=== PATIENT | male | born 1965 | race Caucasian/White ===

== ENCOUNTER 2016-07-29 14:02 | Emergency (ER) | payer MEDICARE ==
[2016-07-29 14:06] VITALS: TEMP 98.7
--- NOTE | 2016-07-29 14:14 | ED ---
General Adult HPI - General Chief complaint: Wound/Laceration Stated complaint: Finger Lac Time Seen by Provider: 07/29/16 14:07 Source: patient, RN notes reviewed Mode of arrival: ambulatory Limitations: no limitations - History of Present Illness Initial comments: Is a 51-year-old male presents with a laceration to the left index finger. Patient states this just happened today as he was using a saw to cut wood. Patient is unsure if he is up-to-date on his tetanus shot. Patient denies any numbness/tingling or weakness to the left hand. Patient denies any recent fever , chills, shortness breath, chest pain, abdominal pain, nausea/vomiting/diarrhea , back pain, hematuria, headache, or visual changes, or any other complaints. - Related Data Home Medications Medication Instructions Recorded Confirmed Citalopram Hydrobromide 40 mg PO QAM 01/22/16 01/22/16 [Citalopram HBr] Hydrochlorothiazide 25 mg PO QAM 01/22/16 01/23/16 Lisinopril [Zestril] 20 mg PO QAM 01/22/16 01/22/16 Naproxen Sodium [Aleve] 220 - 440 mg PO Q4-6H PRN 01/22/16 01/22/16 Previous Rx's Medication Instructions Recorded Hydrocodone/Acetaminophen [[place] 1 - 2 each PO Q6HR PRN #30 tab 01/23/16 5-325] Cephalexin [Keflex] 500 mg PO Q12HR 7 Days 07/29/16 Allergies Allergy/AdvReac Type Severity Reaction Status Date / Time sulfamethoxazole Allergy Rash/Hives. Verified 07/29/16 14:06 [From Bactrim] ITCHING trimethoprim [From Bactrim] Allergy Rash/Hives. Verified 07/29/16 14:06 ITCHING Review of Systems ROS Statement: Those systems with pertinent positive or pertinent negative responses have been documented in the HPI. ROS Other: All systems not noted in ROS Statement are negative. Past Medical History Past Medical History: Hypertension History of Any Multi-Drug Resistant Organisms: None Reported Past Surgical History: Back Surgery, Hernia Repair, Orthopedic Surgery Additional Past Surgical History / Comment(s): CARPAL TUNNEL X2. RIGHT KNEE ARTHO X2. Past Anesthesia/Blood Transfusion Reactions: Motion Sickness, Postoperative Nausea & Vomiting (PONV) Past Psychological History: Anxiety Smoking Status: Current some day smoker Past Alcohol Use History: Occasional Additional Past Alcohol Use History / Comment(s): SMOKED FOR 5 YRS, QUIT 2013, PPD: 1/2 PACK. CURRENT: OCC CIGAR. Past Drug Use History: None Reported - Past Family History Mother Family Medical History: Diabetes Mellitus General Exam - General Exam Comments Initial Comments: General: The patient is awake and alert, in no distress, and does not appear acutely ill. Neck: The neck is supple, there is no tenderness or JVD. Cardiovascular: There is a regular rate and rhythm. No murmur, rub or gallop is appreciated. Respiratory: Lungs are clear to auscultation, respirations are non-labored, breath sounds are equal. No wheezes, stridor, rales, or rhonchi. Musculoskeletal: Tenderness to palpation of the left second digit distal to the DIP joint due to laceration. Full range of motion, strength 5/5 and Sensation intact. Radial pulses 2+ bilaterally. Capillary refill is normal at less than 2 seconds. Neurological: A&O x 3. CN II-XII intact, There are no obvious motor or sensory deficits. Coordination appears grossly intact. Speech is normal. Skin: There is an approximately 1.5-2 cm laceration to the palmar aspect of the left second digit distal to the DIP joint. Skin is warm and dry and no rashes or lesions are noted. Psychiatric: Normal mood and affect. Limitations: no limitations Course Vital Signs 07/29/16 07/29/16 14:03 15:51 Temperature 98.7 F 98.7 F Pulse Rate 71 68 Respiratory 18 17 Rate Blood Pressure 140/94 138/88 O2 Sat by Pulse 95 97 Oximetry Procedures - Procedures Initial comment: The skin was anesthetized with 1% lidocaine using digital block. The laceration was then cleansed and irrigated with normal saline. The wound was inspected, and there was no evidence of injury to deep structures. No foreign body was noted in the wound. A total of 12 skin sutures were placed utilizing 5-0 Ethilon. Laceration is approximately 1.5-2 cm. Patient tolerated procedure well. Medical Decision Making - Medical Decision Making This is a 51-year-old male presents laceration to left index finger. On physical exam there is an approximately 1.5-2 cm laceration to the palmar aspect of the left second digit distal to the DIP joint. Skin is warm and dry and no rashes or lesions are noted. Radial pulses are 2+ bilaterally. Capillary refill is normal at less than 2 seconds. Patient received a tetanus shot in the [facility] today. An x-ray of the left hand was done and reviewed showing:Comminuted tuft fracture is suspected of the second digit of the left hand, there may be associated foreign bodies in the soft tissues. No dislocation. There is associated soft tissue injury and deformity. Impression: Posttraumatic changes second digit distally. Report read by Dr. Terrell. I discussed with patient that this could be a foreign body in the wound but none was visualized while rinsing and cleaning the wound. The skin was anesthetized with 1% lidocaine using digital block. The laceration was then cleansed and irrigated with normal saline. The wound was inspected, and there was no evidence of injury to deep structures. No foreign body was noted in the wound. A total of 12 skin sutures were placed utilizing 5-0 Ethilon. Laceration is approximately 1.5-2 cm. Patient tolerated procedure well. Discussed the results with patient. Discussed suture removal in 8-10 days. Discussed return parameters and signs of infection. Discussed that patient should finish the entire course of antibiotics. Please use finger splint to keep index finger immobilized. Discussed rinsing and showering okay to avoid submerging wound in water. Patient was offered prescription for [place] but refused this stating Tylenol and Motrin will be fine for him. I discussed that patient should follow-up with orthopedics in one to 2 days or return to the [facility] for any worsening symptoms or for any further concerns. Patient and were receptive to this plan patient will be discharged home. I discussed this case with attending physician Dr. Mcfarland who agrees with plan as stated above. Disposition Clinical Impression: Laceration, Open fracture of distal phalangeal tuft Disposition: HOME SELF-CARE Condition: Good Instructions: Laceration (ED) Additional Instructions: Please have sutures removed in 8-10 days. Please finish entire course of antibiotics. Please use finger splint to keep index finger immobilized. Please use [id number] Tylenol and or Motrin as needed for any pain.Please use medication as discussed. Please follow-up with family doctor in the next 2 days of symptoms have not improved. Please return to emergency room if the symptoms increase or worsen or for any other concerns. Prescriptions: Cephalexin [Keflex] 500 mg PO Q12HR 7 Days Referrals: Sundar Goznalez DO [Primary Care Provider] - 1-2 days Jerzy Reis MD [STAFF PHYSICIAN] - 1-2 days Time of Disposition: 15:39
[2016-07-29] MEDS ORDERED: DIPH,PERTUS(ACELL)TETVAC-LF 0.5 ML VIAL IM ONE (14:18)
--- NOTE | 2016-07-29 15:13 | XR ---
Left hand HISTORY: Pain, trauma 3 views of the left hand Comminuted tuft fracture is suspected at the second digit of the left hand, there may be associated f oreign bodies within the soft tissues. No dislocation. There is associated soft tissue injury and def ormity. IMPRESSION: Posttraumatic changes second digit distally.
[2016-07-29 15:52] VITALS: BP 138/88; PULSE 68; RESP 17
== END 2016-07-29 15:51 | disposition home or self-care (01) ==
LOC: EC 14:02
DX: S62.631B Displaced fracture of distal phalanx of left index finger, initial encounter for open fracture (principal); W31.2XXA Contact with powered woodworking and forming machines, initial encounter; S61.211A Laceration without foreign body of left index finger without damage to nail, initial encounter; Z23 Encounter for immunization; Z79.899 Other long term (current) drug therapy; Z88.2 Allergy status to sulfonamides; Z88.8 Allergy status to other drugs, medicaments and biological substances; I10 Essential (primary) hypertension; F41.9 Anxiety disorder, unspecified; F17.200 Nicotine dependence, unspecified, uncomplicated
CPT/HCPCS: 12001; 90471; 90715; 99283

== ENCOUNTER 2018-06-27 06:49 | Day surgery (SDC) | payer MEDICARE ==
[2018-06-23 14:07] VITALS: BMI 35.5
[~2018-06-27 06:49] MED LIST: LACTATED RINGERS 1,000 ML IV SCH; LIDOCAINE 1% 20 ML VIAL (10MG/ML) FOR IV START INTRADERMA PRN
[2018-06-27 07:16] VITALS: RESP 16; TEMP 97.9
[2018-06-27] MEDS ORDERED: PROPOFOL 10 MG/ML 20 ML VIAL IV ONE (08:05)
--- NOTE | 2018-06-27 08:42 | P.PCN ---
Date of Procedure: 06/27/18 Procedure(s) Performed: Procedure: Total colonoscopy. Preoperative diagnosis: Screening for neoplasia. Postoperative diagnosis: Sigmoid diverticulosis with no evidence of acute diverticulitis, strictures, polyps or cancer. Preparation: HalfLytely. Sedation: Was provided by anesthesia. Brief clinical history: The patient is a 53-year-old male who is scheduled for this evaluation for screening for neoplasia. He had a prior exam more than 10 years ago and he believes he had 2 or 3 polyps removed. The patient has no abdominal complaints, bleeding or anemia. Procedure: With the patient on his left lateral decubitus position and after informed consent and adequate sedation, the perianal area was inspected and it did not show any fissures or fistulas. There were no masses felt on digital rectal examination. The Olympus CFH 190L video colonoscope was then inserted in the rectum in the usual fashion and advanced to the cecum. There were multiple diverticular orifices seen scattered in the sigmoid but I saw no evidence of acute diverticulitis or strictures. The mucosa appeared healthy. No polyps or tumors were seen. I retroflexed the endoscope in the rectum before the endoscope was withdrawn. The patient tolerated the procedure well. Plan: The patient was reassured. Discussed dietary measures. He will follow up with you as planned and I recommended repeat exam in 10 years.
[2018-06-27 08:57] VITALS: PULSE 56
[2018-06-27 09:04] VITALS: BP 109/68
== END 2018-06-27 09:28 | disposition home or self-care (01) ==
LOC: ORWHC2ENDO 06:49
DX: Z12.11 Encounter for screening for malignant neoplasm of colon (principal); K57.30 Diverticulosis of large intestine without perforation or abscess without bleeding; I10 Essential (primary) hypertension; M19.90 Unspecified osteoarthritis, unspecified site; Z88.2 Allergy status to sulfonamides
CPT/HCPCS: J2704; G0121; 45378

== ENCOUNTER 2018-10-10 21:26 | Emergency (ER) | payer MEDICARE ==
[2018-10-10] MEDS ORDERED: MORPHINE SULFATE 4 MG/ML SYRINGE IM STA (22:42)
--- NOTE | 2018-10-10 23:25 | ED ---
Fall HPI - General Chief Complaint: Fall Stated Complaint: Back pain/Rib pain Time Seen by Provider: 10/10/18 22:23 Source: patient, RN notes reviewed, old records reviewed Mode of arrival: wheelchair - History of Present Illness Initial Comments: This is a 53-year-old male the ER for evaluation. Patient a fall from standing landing against his wood-burning stove, fireplace area. Patient is severe back pain with history of back pain. Patient also complaining of severe pain without significant shortness of breath. Pain is left-sided left back left rib. No other injury noted did not hit head no loss of consciousness MD Complaint: fall -: hour(s) Fall From: standing When Fall Occurred: 1-3 hours [employer] Fall Witnessed: yes, by family Place Fall Occurred: home Loss of Consciousness: none Prolonged Down Time?: no Symptoms Prior to Fall: none Location: chest, pelvis, buttocks Severity: severe Severity scale (1-10): 7 Quality: sharp, aching Context: tripped/slipped Associated Symptoms: denies - Related Data Home Medications Medication Instructions Recorded Confirmed Citalopram Hydrobromide 40 mg PO QAM 01/22/16 10/10/18 [Citalopram HBr] Hydrochlorothiazide 25 mg PO QAM 01/22/16 10/10/18 Lisinopril [Zestril] 20 mg PO QAM 01/22/16 10/10/18 Allergies Allergy/AdvReac Type Severity Reaction Status Date / Time sulfamethoxazole Allergy Rash/Hives. Verified 10/10/18 22:15 [From Bactrim] ITCHING trimethoprim [From Bactrim] Allergy Rash/Hives. Verified 10/10/18 22:15 ITCHING Review of Systems ROS Statement: Those systems with pertinent positive or pertinent negative responses have been documented in the HPI. ROS Other: All systems not noted in ROS Statement are negative. Past Medical History Past Medical History: Hypertension, Osteoarthritis (OA) History of Any Multi-Drug Resistant Organisms: None Reported Past Surgical History: Back Surgery, Hernia Repair, Orthopedic Surgery Additional Past Surgical History / Comment(s): vern CARPAL TUNNE. RIGHT KNEE arthroscopy x 3, rib removed from rib cage and put bone graft in vertebra Past Anesthesia/Blood Transfusion Reactions: Postoperative Nausea & Vomiting (PONV) Past Psychological History: Depression Smoking Status: Former smoker Past Alcohol Use History: Occasional Past Drug Use History: None Reported - Past Family History Mother Family Medical History: No Reported History General Exam Limitations: no limitations General appearance: alert, in no apparent distress, anxious Head exam: Present: atraumatic, normocephalic, normal inspection Eye exam: Present: normal appearance, PERRL, EOMI. Absent: scleral icterus, conjunctival injection, periorbital swelling ENT exam: Present: normal exam, mucous membranes moist Neck exam: Present: normal inspection. Absent: tenderness, meningismus, lymphadenopathy Respiratory exam: Present: normal lung sounds bilaterally. Absent: respiratory distress, wheezes, rales, rhonchi, stridor Cardiovascular Exam: Present: regular rate, normal rhythm, normal heart sounds. Absent: systolic murmur, diastolic murmur, rubs, gallop, clicks GI/Abdominal exam: Present: soft, normal bowel sounds. Absent: distended, tenderness, guarding, rebound, rigid Extremities exam: Present: normal inspection, full ROM, normal capillary refill. Absent: tenderness, pedal edema, joint swelling, calf tenderness Back exam: Present: normal inspection Neurological exam: Present: alert, oriented X3, CN II-XII intact Psychiatric exam: Present: normal affect, normal mood Skin exam: Present: warm, dry, intact, normal color. Absent: rash Course Vital Signs 10/10/18 10/11/18 21:44 00:54 Temperature 98.7 F 97.9 F Pulse Rate 99 89 Respiratory 18 16 Rate Blood Pressure 125/77 145/80 O2 Sat by Pulse 96 98 Oximetry Medical Decision Making - Medical Decision Making 53 male the ER for evaluation status post fall fall with left rib pain left back pain. X-rays are negative, pain is controlled patient can be discharged home - Radiology Data Radiology results: report reviewed (X-ray of thoracic and lumbar spine as well as ribs are negative for traumatic injury), image reviewed Disposition Clinical Impression: Fall, Back pain, Rib pain, Contusion Disposition: HOME SELF-CARE Condition: Good Instructions (If sedation given, give patient instructions): Contusion in Adults (ED) Is patient prescribed a controlled substance at d/c from ED?: No Referrals: Sundar Gonzalez DO [Primary Care Provider] - 1-2 days
[2018-10-10] MEDS ORDERED: HYDROmorphone 1 MG/ML 1 ML SYRINGE IM STA (23:45)
--- NOTE | 2018-10-11 00:02 | XR ---
EXAM: XR Thoracic Spine, 2 Views CLINICAL HISTORY: ITS.REASON XR Reason: Pain TECHNIQUE: Frontal and lateral views of the thoracic spine. COMPARISON: MRI thoracic spine on 03/17/2014 FINDINGS: Bones/joints: No acute fracture or subluxation. Degenerative changes of the spine. Soft tissues: Normal. IMPRESSION: No acute abnormality identified.
--- NOTE | 2018-10-11 00:04 | XR ---
EXAM: XR Lumbar Spine, 2 or 3 Views CLINICAL HISTORY: ITS.REASON XR Reason: Pain TECHNIQUE: Frontal and lateral views of the lumbar spine. COMPARISON: None FINDINGS: Bones/joints: No acute fracture or subluxation. Degenerative changes of the spine. Soft tissues: Normal. IMPRESSION: No acute abnormality identified.
--- NOTE | 2018-10-11 00:07 | XR ---
EXAM: XR Chest, 1 View CLINICAL HISTORY: ITS.REASON XR Reason: Pain TECHNIQUE: Frontal view of the chest. COMPARISON: None FINDINGS: Hardware: None. Lungs/pleura: Elevation of the right hemidiaphragm. No focal consolidation. No pleural effusion or pneumothorax. Heart/mediastinum: Normal. No cardiomegaly. Soft tissues: Unremarkable. Bones: Question irregularity versus artifact involving the right anterolateral seventh rib. Degenerative changes of the spine. Upper abdomen: Normal. IMPRESSION: Question irregularity versus artifact involving the right anterolateral seventh rib. Further evaluation could be performed with CT if clinically indicated. No other acute disease identified.
[2018-10-11] MEDS ORDERED: Acetaminophen-Codeine 300-30mg TAB PO STA (00:10)
[2018-10-11] MEDS ORDERED: ACET/COD 300 MG/30 MG STARTER PACK 6 TAB BTL PO STA (00:10)
[2018-10-11] MEDS ORDERED: ONDANSETRON 4 MG/2 ML VIAL IM STA (00:13)
[2018-10-11 00:55] VITALS: BP 145/80; PULSE 89; RESP 16; TEMP 97.9
== END 2018-10-11 00:54 | disposition home or self-care (01) ==
LOC: EC 21:26
DX: S20.212A Contusion of left front wall of thorax, initial encounter (principal); S20.222A Contusion of left back wall of thorax, initial encounter; I10 Essential (primary) hypertension; M19.90 Unspecified osteoarthritis, unspecified site; F32.9 Major depressive disorder, single episode, unspecified; Z87.891 Personal history of nicotine dependence; Z79.899 Other long term (current) drug therapy; Z88.1 Allergy status to other antibiotic agents; Z88.2 Allergy status to sulfonamides; W01.0XXA Fall on same level from slipping, tripping and stumbling without subsequent striking against object, initial encounter; Y92.009 Unspecified place in unspecified non-institutional (private) residence as the place of occurrence of the external cause
CPT/HCPCS: 72072; 72110; 71045; 99284; 96372 ×3; J2270; J2405; J1170

== ENCOUNTER → 2019-08-04 | Outpatient (CLI) | payer MEDICARE ==
--- NOTE | 2019-08-04 08:40 | MR ---
EXAMINATION TYPE: MR lumbar spine wo con DATE OF EXAM: 08/04/2019 COMPARISON: 04/18/2014 HISTORY: lumbar stenosis CONTRAST: 0 mL intravenous Gadavist. TECHNIQUE: Multiplanar, multisequence images of the lumbar spine were acquired. FINDINGS: There appears to be S1-S2 disc level. L5-S1: No significant disc bulge or disc herniation. No spinal canal stenosis. No foraminal stenosi s. Mild facet hypertrophy is present. Moderate right and mild left foraminal narrowing is present.. L4-L5: Broad-based disc bulge is present with mild to moderate anterior sac compression. No AP spinal canal stenosis is present. There is some disc extension beyond the inferior endplate of L4 compatibl e subligamentous disc extension. Facet hypertrophy is present with mild posterior lateral thecal sac compression. Some ligamentum flavum laxity is present. Severe right and moderate to severe left mignon inal stenosis is present. Some nerve root contact and compression at L4-5 on the right may be present . Foraminal narrowing may have similar or mildly increased stenosis to the comparison study. The disc bulging may be slightly greater. L3-L4: Mild disc bulge has anterior thecal sac contact. No spinal canal stenosis is present. Mild rig ht foraminal narrowing from disc bulging is present. L2-L3: Mild loss of disc height is present. Minimal disc bulge is anterior thecal sac flattening. No AP spinal canal stenosis present. Mild facet hypertrophy is present. Neural foramen are patent. L1-L2: No significant disc bulge or disc herniation. No spinal canal stenosis. No foraminal stenosi s. . T12-L1: No significant disc bulge or disc herniation. No spinal canal stenosis. No foraminal stenos is. . IMPRESSION: 1. Broad-based disc bulging with some some disc extension L4-5 with mild anterior thecal sac compress ion. There is extent into the right foramen causing severe foraminal stenosis and suspected nerve mel t compression within the foramen. Correlate for right L5 radicular symptoms. Findings are similar to 2013 although slight increase in foraminal stenosis may be present on the right. 2. Degenerative disc changes within the lumbar spine. 3. Mild facet hypertrophy present.
== END | disposition home or self-care (01) ==
LOC: RADMRIMAIN 07:20
PROVIDERS: ATTEND Physician Assistant Surgical
DX: M48.061 Spinal stenosis, lumbar region without neurogenic claudication (principal); M51.16 Intervertebral disc disorders with radiculopathy, lumbar region; M51.36 Other intervertebral disc degeneration, lumbar region; M46.96 Unspecified inflammatory spondylopathy, lumbar region
CPT/HCPCS: 72148

== ENCOUNTER → 2021-10-27 | Outpatient (CLI) | payer MEDICARE ==
--- NOTE | 2021-10-27 12:21 | XR ---
EXAMINATION TYPE: XR finger LT DATE OF EXAM: 10/27/2021 Comparison: 07/29/2016 TECHNIQUE: AP and lateral views left second digit Clinical History: 56-year-old male [id number] LT FINGER PAIN at the proximal phalanx for one month Findings: There is a tiny 2 mm corticated density along the ulnar aspect of the second DIP joint of questionabl e clinical significance. There is mild degenerative spurring at the second MCP joint. No acute fractu re, subluxation, dislocation. Some mild contour deformity to the tip of the index finger related to p rior 2017 injury. Impression: 1. Mild OA at the second MCP joint. 2. Tiny 2 mm loose body or chronically fragmented spur ulnar aspect of the second DIP joint. 3. No acute osseous abnormality seen.
== END | disposition home or self-care (01) ==
LOC: RADXRYALE 10:49
PROVIDERS: ATTEND Physician Assistant Medical
DX: M19.042 Primary osteoarthritis, left hand (principal)

== ENCOUNTER → 2022-11-11 | Outpatient (CLI) | payer MEDICARE ==
--- NOTE | 2022-11-11 14:37 | XR ---
EXAMINATION TYPE: XR ribs LT w pa chest xray DATE OF EXAM: 11/11/2022 COMPARISON: 10/10/2018 HISTORY: Pain left lower ribs after fall today TECHNIQUE: 2 view left rib supplemented with an AP chest FINDINGS: Callus formation is evident on the posterior lateral left 10th and 11th ribs compatible wit h old or healing fractures. Heart size is normal. Pulmonary vasculature is normal. Lungs are clear. No pneumothorax is evident. IMPRESSION: 1. There appear to be old or healing fractures of the posterior left 10th and 11th ribs. 2. Acute osseous abnormality not radiographically apparent
== END | disposition home or self-care (01) ==
LOC: RADXRYALE 14:14
PROVIDERS: ATTEND Physician Assistant Medical
DX: R55 Syncope and collapse (principal); R07.89 Other chest pain

== ENCOUNTER → 2022-12-01 | Outpatient (CLI) | payer MEDICARE ==
--- NOTE | 2022-12-02 20:47 | MR ---
EXAMINATION TYPE: MR knee LT wo con DATE OF EXAM: 12/01/2022 COMPARISON: No radiographic correlation available. HISTORY: 57-year-old male M23.92 Left knee pain S/P fall 1 year ago. TECHNIQUE: Multiplanar, multisequence imaging of the left knee is performed without IV contrast. FINDINGS: The ACL and PCL are intact. The MCL is intact. Some heterogeneous signal at the femoral attachment of the LCL proper suggesting o ld sprain and additional heterogeneous signal of the popliteus tendon compatible with tendinosis. LCL complex is otherwise intact. There is a large peripherally located longitudinal tear involving the posterior horn of the lateral m eniscus. Inner margin oblique tear extends from the junction of the posterior horn and body into the body of the lateral meniscus. Overall lateral compartment articular cartilage volume is maintained. There is inner margin oblique tear involving the posterior horn of the medial meniscus with a oblique undersurface tear extending through the meniscal body. Slight extrusion of meniscal tissue into the inferior gutter, coronal image 28. Overall medial compartment articular cartilage volume is maintaine d. Minimal superficial fissuring of mid patellar articular cartilage. Overall cartilage volume in the pa tellofemoral compartment is maintained. Extensor mechanism is intact but with heterogeneous signal at the quadriceps insertion. Nonspecific edema within the suprapatellar fat pad and nonspecific anterior soft tissue swelling is p resent. Small knee joint effusion and small 2.6 x 0.9 cm Pryor cyst. There appears to be effusion measuring 1.8 x 1.2 cm at the semimembranosus MCL bursa. Small ganglion cyst measuring 1.3 x 1.0 cm at the origin of the medial gastrocnemius. There is aberrant high takeoff of the anterior tibial artery courses deep to the popliteus muscle. Preserved muscle bulk. No suspicious bone marrow replacement. IMPRESSION: 1. Large, peripherally located longitudinal tear involving the posterior horn of the lateral meniscus . Inner margin oblique tear extends from the junction of the posterior horn/body into the body of the lateral meniscus. 2. Inner margin oblique tear involving the posterior horn of the medial meniscus with an oblique, und ersurface tear extending into the meniscal body. Slight extrusion of meniscal tissue into the inferio r gutter. 3. Moderate insertional quadriceps tendinosis. Edema in the suprapatellar fat pad is nonspecific but may be seen in the setting of fat pad impingement syndrome. 4. Small knee joint effusion and small Pryor's cyst. 5. Note variant anatomy with aberrant high takeoff of the anterior tibial artery.
== END | disposition home or self-care (01) ==
LOC: RADMRIMAIN 05:41
PROVIDERS: ATTEND Physician Assistant Surgical
DX: S83.282A Other tear of lateral meniscus, current injury, left knee, initial encounter (principal); S83.242A Other tear of medial meniscus, current injury, left knee, initial encounter; M25.462 Effusion, left knee; M71.22 Synovial cyst of popliteal space [Baker], left knee; M23.92 Unspecified internal derangement of left knee; M67.864 Other specified disorders of tendon, left knee; X58.XXXA Exposure to other specified factors, initial encounter

== ENCOUNTER 2023-03-13 10:07 | Emergency (ER) | payer MEDICARE ==
[2023-03-13 10:17] VITALS: TEMP 98
[2023-03-13] MEDS ORDERED: LIDOCAINE 5% PATCH TOPICAL ONE (10:30)
[2023-03-13] MEDS ORDERED: MORPHINE SULFATE 2 MG/ML SYRINGE IM STA (10:30)
[2023-03-13] MEDS ORDERED: KETOROLAC 15 MG/ML 1 ML VIAL IM STA (10:30)
--- NOTE | 2023-03-13 11:02 | ED ---
Fall HPI - General Chief Complaint: Fall Stated Complaint: Fall Time Seen by Provider: 03/13/23 10:22 Source: patient, RN notes reviewed Mode of arrival: wheelchair Limitations: no limitations - History of Present Illness Initial Comments: This is a 57-year-old male who presents to the emergency department for right- sided rib pain after a fall. Patient tripped and fell 3 days ago and when he landed, he developed pain over the right rib cage. He has been applying ice and taking Advil with no relief. States that taking deep breaths and coughing is a lso very painful. Denies hitting his head or sustaining any loss of consciousness. Denies any fevers, chills, sore throat, cough, dyspnea, chest pain, palpitations, abdominal pain, nausea, vomiting, diarrhea, back pain, or headaches. MD Complaint: fall - Related Data Home Medications Medication Instructions Recorded Confirmed Citalopram Hydrobromide 40 mg PO QAM 01/22/16 10/10/18 [Citalopram HBr] hydroCHLOROthiazide 25 mg PO QAM 01/22/16 10/10/18 lisinopriL [Zestril] 20 mg PO QAM 01/22/16 10/10/18 Previous Rx's Medication Instructions Recorded Benzonatate [Tessalon Perles] 100 mg PO TID PRN #20 capsule 03/13/23 Ketorolac [Toradol] 10 mg PO Q6HR PRN #15 tab 03/13/23 Lidocaine 5% Patch [Lidoderm 5% 1 patch TOPICAL DAILY PRN #30 patch 03/13/23 Patch] methocarbamoL [Robaxin-750] 1,500 mg PO QID PRN #30 tab 03/13/23 Allergies Allergy/AdvReac Type Severity Reaction Status Date / Time sulfamethoxazole Allergy Rash/Hives. Verified 03/13/23 10:13 [From Bactrim] ITCHING trimethoprim [From Bactrim] Allergy Rash/Hives. Verified 03/13/23 10:13 ITCHING Review of Systems ROS Statement: Those systems with pertinent positive or pertinent negative responses have been documented in the HPI. ROS Other: All systems not noted in ROS Statement are negative. Past Medical History Past Medical History: Hypertension, Osteoarthritis (OA) History of Any Multi-Drug Resistant Organisms: None Reported Past Surgical History: Back Surgery, Hernia Repair, Orthopedic Surgery Additional Past Surgical History / Comment(s): vern CARPAL TUNNEL. RIGHT KNEE arthroscopy x 3, rib removed from rib cage and put bone graft in vertebra, left knee Past Anesthesia/Blood Transfusion Reactions: Postoperative Nausea & Vomiting (PONV) Past Psychological History: Depression Smoking Status: Former smoker Past Alcohol Use History: Rare Past Drug Use History: None Reported - Past Family History Mother Family Medical History: No Reported History General Exam Limitations: no limitations General appearance: alert, in no apparent distress Head exam: Present: atraumatic, normocephalic, normal inspection Respiratory exam: Present: normal lung sounds bilaterally. Absent: respiratory distress, wheezes, rales, rhonchi, stridor Cardiovascular Exam: Present: regular rate, normal rhythm, normal heart sounds. Absent: systolic murmur, diastolic murmur, rubs, gallop, clicks GI/Abdominal exam: Present: other (Tenderness to palpation over the right rib cage and just inferior to the right breast. No overlying ecchymosis.) Neurological exam: Present: alert, oriented X3, CN II-XII intact Psychiatric exam: Present: normal affect, normal mood Skin exam: Present: warm, dry, intact, normal color. Absent: rash Course Vital Signs 03/13/23 03/13/23 03/13/23 10:13 11:39 13:06 Temperature 98.0 F Pulse Rate 83 71 71 Respiratory 24 18 17 Rate Blood Pressure 149/104 122/77 134/79 O2 Sat by Pulse 96 91 L 4 L Oximetry Medical Decision Making - Medical Decision Making This is a 57-year-old male who presents to the emergency department for right rib pain after a fall. Was pt. sent in by a medical professional or institution? @ -No Did you speak to anyone other than the patient for history? @ -No Did you review nursing and triage notes? @ -Yes, and I agree, it is accurate with regards to the patient's symptoms. Were old charts reviewed? @ -No Differential Diagnosis? @ -Differential Rib Pain: Fracture, contusion, abrasion, this is not meant to be an all-inclusive list. EKG interpreted by me (3pts min.)? @ -Not obtained X-rays interpreted by me (1pt min.)? @ -X-ray of the right ribs and chest obtained. My interpretation identifies a fracture to the right sixth rib. CT interpreted by me (1pt min.)? @ -Not obtained U/S interpreted by me (1pt. min.)? @ -Not obtained What testing was considered but not performed? (CT, X-rays, U/S, labs)? Why? @ -None What meds were considered but not given? Why? @ -None Did you discuss the management of the patient with other professionals? @ -No Did you reconcile home meds? @ -No Was smoking cessation discussed for >3mins.? @ -No Was critical care preformed (if so, how long)? @ -No Were there social determinants of health that impacted care today? How? (Homelessness, low income, unemployed, alcoholism, drug addiction, transportation, low edu. Level, literacy, decrease access to med. care, [facility], rehab)? @ -No Was there de-escalation of care discussed even if they declined? (Discuss DNR or withdrawal of care, Hospice)? @ -No What co-morbidities impacted this encounter? (DM, HTN, Smoking, COPD, CAD, Cancer, CVA, Hep., AIDS, mental health diagnosis, sleep apnea, morbid obesity)? @ -Morbid obesity, osteoarthritis Was patient admitted / discharged? @ -Discharged. X-ray of the right ribs and chest obtained revealing a nondisplaced right sixth rib fracture. Pain was well controlled in the emergency department. He notes problems with postnasal drip and inquired about medication to suppress the coughing, as this causes the pain to be much worse. He started taking Flonase and an [id number] antihistamine, with some improvement in symptoms. He was given a dose of tessalon perles which he felt was very helpful. Prescription for Toradol, Robaxin, lidocaine patches, and Tessalon Perles provided with dosing instructions reviewed. Patient is instructed to take the Toradol with Tylenol if needed and avoid any other ov [id number] anti-inflammatories such as ibuprofen with the Toradol. He is also instructed to take several deep breaths an hour to reduce the risk of developing a secondary pneumonia. Undiagnosed new problem with uncertain prognosis? @ -None Drug Therapy requiring intensive monitoring for toxicity (Heparin, Nitro, Insulin, Cardizem)? @ -None Were any procedures done? @ -None Diagnosis/symptom? @ -Fall, right sixth rib fracture Acute, or Chronic, or Acute on Chronic? @ -Acute Uncomplicated (without systemic symptoms) or Complicated (systemic symptoms)? @ -Uncomplicated Side effects of treatment? @ -None Exacerbation, Progression, or Severe Exacerbation] @ -Not applicable Poses a threat to life or bodily function? @ -No Return precautions reviewed in depth, the patient is instructed to return to the emergency department with any new, worsening, or concerning symptoms. Patient verbalized understanding. This case was discussed in detail with the attending ED physician, Dr. Mcfarland. P resentation, findings, and treatment plan discussed in detail as well. - Radiology Data Radiology results: report reviewed, image reviewed Disposition Clinical Impression: Fall, Right rib fracture Disposition: HOME SELF-CARE Instructions (If sedation given, give patient instructions): Rib Fracture (ED) Additional Instructions: Return to the emergency department with any new, worsening, or concerning symptoms. Take the Toradol with Tylenol as needed for pain relief. If you choose to take the Toradol, do not take any other anti-inflammatories such as ibuprofen, take one or the other. You can apply the lidocaine patches daily. You may take the Robaxin up to 4 times daily as needed for additional pain relief. Be aware that this may make you drowsy and you should avoid driving or operating machinery when taking this. You can take the cough medication 3 times daily as well. Make sure you take several deep breaths an hour despite the pain to reduce the risk of developing a secondary pneumonia. Follow up with your primary care provider in 1-2 days. Prescriptions: Lidocaine 5% Patch [Lidoderm 5% Patch] 1 patch TOPICAL DAILY PRN #30 patch PRN Reason: Pain methocarbamoL [Robaxin-750] 1,500 mg PO QID PRN #30 tab PRN Reason: Pain Benzonatate [Tessalon Perles] 100 mg PO TID PRN #20 capsule PRN Reason: Cough Ketorolac [Toradol] 10 mg PO Q6HR PRN #15 tab PRN Reason: Pain Is patient prescribed a controlled substance at d/c from ED?: No Referrals: Sundar Gonzalez DO [Primary Care Provider] - 1-2 days
--- NOTE | 2023-03-13 11:05 | XR ---
EXAMINATION TYPE: XR ribs RT w pa chest xray DATE OF EXAM: 03/13/2023 10:58 AM INDICATION: Patient age:Male; 57 years old; Reason for study: Right rib cage pain after fall; [facility]. COMPARISON: 11/11/2022 TECHNIQUE: Frontal and oblique views of the right ribs with frontal chest radiograph FINDINGS: Acute nondisplaced lateral right sixth rib fracture. Remote fracture deformity of the right seventh rib.. No evidence of fracture. Overall, the lungs are clear. The cardiac silhouette is nor mal in size. The remaining osseous structures are intact. IMPRESSION RIBS: Acute nondisplaced right sixth rib fracture. No pneumothorax.
[2023-03-13] MEDS ORDERED: IPRATROPIUM BROMIDE 0.06% NASAL SPRAY (15 ML) NASAL ONE (11:14)
[2023-03-13] MEDS ORDERED: ONDANSETRON ODT 4 MG TAB PO STA (11:14)
[2023-03-13] MEDS ORDERED: BENZONATATE 100 MG CAP PO STA (11:32)
[2023-03-13 11:40] VITALS: PULSE 71
[2023-03-13] MEDS ORDERED: traMADol 50 MG STARTER PACK 3 TAB BTL PO STA (12:59)
[2023-03-13] MEDS ORDERED: ONDANSETRON 4 MG ODT STARTER PACK 2 TAB BTL PO STA (12:59)
[2023-03-13 13:07] VITALS: BP 134/79; RESP 17
== END 2023-03-13 13:47 | disposition home or self-care (01) ==
LOC: EC 10:07
DX: S22.31XA Fracture of one rib, right side, initial encounter for closed fracture (principal); I10 Essential (primary) hypertension; F32.A Depression, unspecified; Z79.899 Other long term (current) drug therapy; Z87.891 Personal history of nicotine dependence; Z88.1 Allergy status to other antibiotic agents; Z88.2 Allergy status to sulfonamides; W01.0XXA Fall on same level from slipping, tripping and stumbling without subsequent striking against object, initial encounter
CPT/HCPCS: 71101; 99284; 96372 ×2; J2270; J1885; S0119